=== PATIENT | female | born 1985 | race Hispanic/Latino ===

== ENCOUNTER 2017-01-01 14:52 | Inpatient (IN) | payer OTHER ==
--- NOTE | 2017-01-01 15:56 | ED PDOC ---
HPI: General Adult Time Seen by Provider: 01/01/17 14:55 Chief Complaint (Nursing): Weakness/Neurological Deficit Chief Complaint (Provider): Weakness, abnormal labs History Per: Patient History/Exam Limitations: no limitations Onset/Duration Of Symptoms: Persistent, Other Have you had recent travel within the past 21 days to any of the following countries: [place], [place], [place] or [place]?: No Current Symptoms Are (Timing): Still Present Severity: Moderate Additional History Per: Patient Additional Complaint(s): The pt is a 31yo female, PMHx of IDDM, stage 4 kidney failure, presents to the ED for evaluation of weakness and nausea present for the past couple weeks. Pt also reports she recently had bloodwork done and her results indicated her kidney function went fro 15 to 6, causing her concern and prompting her visit to the ED. Pt currently requesting a repeat of her bloodwork to compare against her [facility] results. She denies any fever, vomiting or diarrhea and offers no additional medical complaints. PCP: [place] Help Desk Engineer: Dr. Mora Past Medical History Reviewed: Historical Data, Nursing Documentation, Vital Signs Vital Signs: Last Vital Signs Temp 98.4 F 01/01/17 15:09 Pulse 82 01/01/17 15:09 Resp 16 01/01/17 15:09 BP 148/96 H 01/01/17 15:09 Pulse Ox 100 01/01/17 19:11 - Medical History PMH: Anemia, Anxiety, Diabetes, HTN, Kidney Stones (first incident), Chronic Kidney Disease Denies: HIV - Surgical History Surgical History: Appendectomy - Family History Family History: States: Diabetes - Living Arrangements Living Arrangements: With Family - Social History Current smoker - smoking cessation education provided: No Alcohol: None Drugs: Denies - Home Medications Home Medications: Ambulatory Orders Medication Instructions Recorded Insulin Lispro [Humalog] 0.575 unit SC ASDIR 02/25/16 Atorvastatin [Lipitor] 20 mg PO HS #0 tab 04/02/16 Norethindrone [Ortho Micronor] 1 tab PO DAILY #0 tablet 04/02/16 Sodium Bicarbonate Tab 1,300 mg PO BID #0 tab 04/02/16 - Allergies Allergies/Adverse Reactions: Allergies Allergy/AdvReac Type Severity Reaction Status Date / Time Sulfa (Sulfonamide Allergy RASH Verified 06/04/17 15:08 Antibiotics) Review of Systems ROS Statement: Except As Marked, All Systems Reviewed And Found Negative Constitutional: Positive for: Weakness. Negative for: Fever Gastrointestinal: Positive for: Nausea. Negative for: Vomiting, Diarrhea Physical Exam - Reviewed Nursing Documentation Reviewed: Yes Vital Signs Reviewed: Yes - Physical Exam Appears: Positive for: Well, Non-toxic, No Acute Distress Head Exam: Positive for: ATRAUMATIC, NORMAL INSPECTION, NORMOCEPHALIC Skin: Positive for: Normal Color Eye Exam: Positive for: EOMI Cardiovascular/Chest: Positive for: Regular Rate, Rhythm Respiratory: Positive for: Normal Breath Sounds. Negative for: Respiratory Distress Gastrointestinal/Abdominal: Positive for: Soft. Negative for: Tenderness Extremity: Positive for: Normal ROM Neurologic/Psych: Positive for: Alert, Oriented - Laboratory Results Result Diagrams: 01/01/17 15:57 01/01/17 15:57 - ECG O2 Sat by Pulse Oximetry: 100 Medical Decision Making Medical Decision Making: Time: 152 Impression: Chronic end stage kidney failure Plan: -- CBC -- Magneisum -- Phosphorous -- BMP -- Urinalysis --Reassess Time: 171 Labs indicate: BUN: 114 Creatinine: 10.0 Time: [address] Tierney, covering for Dr. Mora; informed about pt's lab results and Dr. Tierney advises admission for further evaluation and possible dialysis in the future. Recommends Renal US. Time: 184 US Renal IMPRESSION: Bilateral small, echogenic kidneys, suggestive of chronic renal parenchymal disease. Recommend clinical correlation. Probable left renal cyst. No evidence of hydronephrosis or other acute sonographic abnormality of the kidneys. Scribe Attestation: Documented by Jess Martinez acting as a scribe for Charmaine Stiles MD. Provider Attestation: All medical record entries made by the Scribe were at my direction and personally dictated by me. I have reviewed the chart and agree that the record accurately reflects my personal performance of the history, physical exam, medical decision making, and the department course for this patient. I have also personally directed, reviewed, and agree with the discharge instructions and disposition. Disposition - Clinical Impression Clinical Impression: Acute renal failure superimposed on stage 4 chronic kidney disease - Patient ED Disposition Is Patient to be Admitted: Yes Discussed With DrSmith: Nba Pappas Doctor Will See Patient In The: Hospital Counseled Patient/Family Regarding: Studies Performed, Diagnosis - Disposition Disposition Time: 17:30 Condition: FAIR - Pt Status Changed To: Hospital Disposition Of: Observation - POA Present On Arrival: None, Poor Glycemic Control
[2017-01-01 16:23] LABS: BASO # 0.1 K/uL (0.0-0.2); EOS # 0.1 K/uL (0.0-0.7); EOS % 1.3 % (0.0-4.0); HEMATOCRIT 28.1 % (34.0-47.0); LYMPH # 1.5 K/uL (1.0-4.3); LYMPH % 20.2 % (20.0-40.0); MEAN CELL VOLUME 81.8 fl (81.0-99.0); MEAN CORPUSCULAR HEMOGLOBIN 28.2 pg (27.0-31.0); MEAN CORPUSCULAR HGB CONC 34.5 g/dL (33.0-37.0); MEAN PLATELET VOLUME 7.9 fl (7.2-11.7); MONO # 0.5 K/uL (0.0-0.8); MONO % 6.3 % (0.0-10.0); NEUT # 5.2 K/uL (1.8-7.0); NEUT % 71.2 % (50.0-75.0); NRBC % 0.1 % (0.0-0.0); WHITE BLOOD COUNT 7.3 K/uL (4.8-10.8)
[2017-01-01 16:25] LABS: RBC URINE 2 /hpf (0-3); URINE BACTERIA RARE (<OCC); URINE BILIRUBIN NEGATIVE (NEGATIVE); URINE BLOOD NEGATIVE (NEGATIVE); URINE COLOR STRAW (YELLOW); URINE GLUCOSE (UA) >=500 mg/dL (Normal); URINE KETONE NEGATIVE (NEGATIVE); URINE LEUKOCYTE ESTERASE NEG Leu/uL (Negative); URINE PROTEIN >=500 mg/dL (NEGATIVE); URINE UROBILINOGEN 0.2-1.0 mg/dL (0.2-1.0); WBC URINE 1 /hpf (0-5)
[2017-01-01 16:36] LABS: ALB/GLOB RATIO 1.4 (1.0-2.1); BILIRUBIN,TOTAL 0.7 mg/dl (0.2-1.3); MAGNESIUM 1.9 MG/DL (1.6-2.3); PHOSPHOROUS 8.7 mg/dl (2.5-4.5); POTASSIUM 4.3 MMOL/L (3.6-5.0); TOTAL PROTEIN 6.4 G/DL (6.3-8.2)
--- NOTE | 2017-01-01 18:32 | CP.PCM.CON ---
History of Present Illness - History of Present Illness History of Present Illness: Initial Nephrology Consultation: Assessment: LYNN ? etiology on Chronic Kidney Disease Stage 4/5 with 8 gm proteinuria likely due to diabetic nephropathy: likely ESRD now HAGMS with superimposed metabolic alkalosis Anemia, Hyperphosphatemia, Secondary hyperparathyroidism, Hypertension, DM Plan initiation of renal replacement therapy will be indicated in next 1-2 days if no renal improvement with IVF. consent for dialysis obtained. start NS at 100 ml/hr straight cath to r/o obstruction and also to check renal sonogram: done: echogenic kidneys Pt can get kidnet transplant at [facility] in 2 weeks, has living donor. work up has been all complete as per pt Hypertension control with meds as ordered. Patient not on ACEI/ARB advanced CKD Monitor Input/Output, daily weights and renal function with basic metabolic panel, phos, CBC start renvela 1600 mg TID with meals. Nephrovit 1 tab/day. ferrous sulphate 352 mg TID and calcitriol 0.5 mcg daily Dose meds/antibiotics for reduced GFR <10. Avoid fleets enema/magnesium based laxatives. Avoid nephrotoxins/NSAIDs/ iodinated contrast (unless needed emergently) Glycemic control Further work up for as per primary team Thanks for allowing me to participate in care of your patient. Will follow patient with you. Please call if any Qs Dr Héctor Tierney Office: [phone] Chief Complaint; kidney problem HPI: Pt is a 31 y/o F with hx of Type I diabetes Mellitus and CKD stage 4/5 (cr 3-4 in 2016) presented with complaints of abormal labs and elevated creatinine. BUN 114 and cr 10 now hence renal consulted Denies chest pain, palpitation, shortness of breath, leg swelling Denies blood or bubbles in urine Denies OTC/herbal meds or NSAIDs No recent iodinated contrast exposure. No obvious episodes of low BP. feels fatigue and tired ROS: Constitutional Symptoms: Denies fever. No chills. No Recent Weight Changes Eyes: denies change in vision, denies watery eyes, denies double vision Ears/Nose/Mouth/Throat: Denies Abnormal Taste. No Bad breath or Bad Taste. Cardiovascular: No chest pain. There is no shortness of breath. No palpitations. Pulmonary: No shortness of breath or cough. Gastrointestinal: denies abdominal pain No nausea. No vomiting. Denies change in bowel habits. Denies Bleeding Genitourinary: No Change in force of strain when urinating. No increase in urinary frequency. No pain while urinating. Denies blood in urine. Neurological: Denies headaches. No dizziness. Denies loss of balance. Denies weakness, denies tingling/numbness Dermatological: No Rash or Bruising or ulcers. Psychiatric: Denies Anxiety. No depression. Denies hallucinations. Rheumatological: No joint pain. Denies Joint swelling Endocrine: c/o tiredness. c/o Fatigue and Heat/Cold Intolerance. Physical Examination: General Appearance: Comfortable, in no acute respiratory distress, co-operative . Vitals reviewed and noted as below Head; Atraumatic, normocephalic ENT: no ulcers no thrush. Tongue is midline. Oropharynx: no rash or ulcers. EYES: Pupils are equal, round and reactive to light accommodation. Eye muscles and extraocular movement intact. Sclera is anicteric. Neck; supple no lymphadenopathy, no thyromegaly or bruit Lungs: Normal respiratory rate/effort. Breath sounds bilateral equal and clear Heart: Normal rate. s1s2 normal. No rub or gallop. Extremities: no edema. No varicose veins Neurological: Patient is alert, awake and oriented to person, place and time. No focal deficit. Strength bilateral appropriate and equal Skin: Warm and dry. Normal turgor. No rash. Palpitation: Normal elasticity for age Abdomen: Abdomen is soft. Bowel sounds +. There is no abdominal tenderness, no guarding/rigidity or organomegaly Psych: normal insight and normal affect/mood MSK: no joint tenderness or swelling. Digits and nails normal, no deformity : kidney or bladder not palpable Labs/imaging reviewed. Past medical history, past surgical history, family history, social history, allergy reviewed and noted as below UA: 500 pr and [address] 2016 with Rt hydronephrosis outpt PTH 1003 TSAT 30% ferriitn 118 urine pr/cr 8 gram/day Past Patient History - Past Medical History & Family History Past Medical History?: Yes - Past Social History Alcohol: None Drugs: Denies - CARDIAC Hx Hypertension: Yes - PULMONARY Hx Respiratory Disorders: No - NEUROLOGICAL Hx Neurological Disorder: No - HEENT Hx HEENT Problems: Yes (DM1) - RENAL Hx Chronic Kidney Disease: Yes Hx Kidney Stones: Yes (first incident) - ENDOCRINE/METABOLIC Hx Diabetes Mellitus Type 1: Yes - HEMATOLOGICAL/ONCOLOGICAL Hx Anemia: Yes Hx Human Immunodeficiency Virus (HIV): No - INTEGUMENTARY Hx Dermatological Problems: No - MUSCULOSKELETAL/RHEUMATOLOGICAL Hx Musculoskeletal Disorders: No - GASTROINTESTINAL Hx Gastrointestinal Disorders: No - GENITOURINARY/GYNECOLOGICAL Hx Genitourinary Disorders: No - PSYCHIATRIC Hx Anxiety: Yes - SURGICAL HISTORY Hx Appendectomy: Yes - ANESTHESIA Hx Anesthesia: Yes Hx Anesthesia Reactions: No Meds Allergies/Adverse Reactions: Allergies Allergy/AdvReac Type Severity Reaction Status Date / Time Sulfa (Sulfonamide Allergy RASH Verified 01/01/17 15:08 Antibiotics) Results - Vital Signs Recent Vital Signs: Last Vital Signs Temp 98.4 F 01/01/17 15:09 Pulse 82 01/01/17 15:09 Resp 16 01/01/17 15:09 BP 148/96 H 01/01/17 15:09 Pulse Ox 100 01/01/17 17:45 - Labs Result Diagrams: 01/01/17 15:57 01/01/17 15:57 Labs: Laboratory Results - last 24 hr 01/01/17 01/01/17 01/01/17 15:57 15:57 15:57 WBC 7.3 RBC 3.43 L Hgb 9.7 L Hct 28.1 L MCV 81.8 D MCH 28.2 MCHC 34.5 RDW 13.0 Plt Count 222 MPV 7.9 Neut % (Auto) 71.2 Lymph % (Auto) 20.2 [place] % (Auto) 6.3 Eos % (Auto) 1.3 Baso % (Auto) 1.0 Neut # 5.2 Lymph # 1.5 [place] # 0.5 Eos # 0.1 Baso # 0.1 Sodium 131 L Potassium 4.3 Chloride 95 L Carbon Dioxide 21 L Anion Gap 19 BUN 114 H* D Creatinine 10.0 H* D Est GFR ( Amer) 5 Est GFR (Non-Af Amer) 5 Random Glucose 195 H Calcium 7.0 L Phosphorus 8.7 H Magnesium 1.9 Total Bilirubin 0.7 AST 34 ALT 35 Alkaline Phosphatase 65 Total Protein 6.4 Albumin 3.7 Globulin 2.7 Albumin/Globulin Ratio 1.4 Urine Color Straw Urine Clarity Clear Urine pH 7.0 Ur Specific Wendel 1.011 Urine Protein >=500 Urine Glucose (UA) >=500 Urine Ketones Negative Urine Blood Negative Urine Nitrate Negative Urine Bilirubin Negative Urine Urobilinogen 0.2-1.0 Ur Leukocyte Esterase Neg Urine RBC (Auto) 2 Urine Microscopic WBC 1 Ur Squamous Epith Cells 1 Urine Bacteria Rare
--- NOTE | 2017-01-01 18:47 | US ---
EXAM: US Retroperitoneal Complete, Renal CLINICAL HISTORY: 31 years old, female; Signs and symptoms and condition or disease; Kidney or ureter condition; Chronic kidney disease or failure; Not specified; Other: Medical eval; Additional info: Renal failure TECHNIQUE: Real-time ultrasound of the retroperitoneum (complete) with image documentation. EXAM DATE/TIME: 01/01/2017 5:23 PM COMPARISON: No relevant prior studies available. FINDINGS: Right kidney: Demonstrates increased cortical echogenicity, most likely due to renal parenchymal disease. Small in size, measuring 8.3 cm in length. Otherwise within normal limits in appearance. No evidence of hydronephrosis. No renal calculi are visible sonographically. Left kidney: Demonstrates increased cortical echogenicity, most likely due to renal parenchymal disease. Small in size, measuring 7.9 cm in length. Contains a 2.0 x 1.3 cm anechoic lesion, located in the upper pole, incompletely visualized due to bowel gas, but most likely a cyst. Otherwise within normal limits in appearance. No evidence of hydronephrosis. No renal calculi are visible sonographically. Bladder: Incompletely distended. Bilateral ureteral jets were not visualized. Otherwise within normal limits in appearance. Aorta: Imaged portions appear unremarkable. IVC: Imaged portions appear unremarkable. IMPRESSION: Bilateral small, echogenic kidneys, suggestive of chronic renal parenchymal disease. Recommend clinical correlation. Probable left renal cyst. No evidence of hydronephrosis or other acute sonographic abnormality of the kidneys. See above for remaining findings.
[2017-01-01] MEDS: Sodium Chloride 0.9% 1,000 ML IV SCH (19:35)
[2017-01-01] MEDS ORDERED: Dextrose 50% SYRINGE Inj (50 ml) ONE (20:06)
[2017-01-01] MEDS ORDERED: Dextrose 50% SYRINGE Inj (50 ml) IVP ONE (20:30)
[2017-01-02] MEDS: Sodium Chloride 0.9% 1,000 ML IV SCH ×2 (04:35→12:30)
[2017-01-02] MEDS: Insulin Regular 100 units/ml SC SCH ×5 (06:57→22:38)
[2017-01-02] MEDS ORDERED: NORETHINDRONE E ESTRADIOL IRON PO SCH (09:00)
[2017-01-02 10:19] LABS: HEMATOCRIT 24.2 % (34.0-47.0); MEAN CELL VOLUME 82.5 fl (81.0-99.0); MEAN CORPUSCULAR HEMOGLOBIN 27.7 pg (27.0-31.0); MEAN CORPUSCULAR HGB CONC 33.6 g/dL (33.0-37.0)
[2017-01-02 10:28] LABS: CALCIUM 6.7 mg/dL (8.4-10.2); PHOSPHOROUS 7.8 mg/dl (2.5-4.5); POTASSIUM 4.4 MMOL/L (3.6-5.0)
[2017-01-02 10:31] LABS: IRON 119 ug/dL (37-170)
[2017-01-02] MEDS ORDERED: EPOETIN ALFA 10,000 UNIT/ML ML SC SCH (11:04)
--- NOTE | 2017-01-02 11:08 | CP.PCM.PN ---
Subjective - Date & Time of Evaluation Date of Evaluation: 01/02/17 Time of Evaluation: 11:06 - Subjective Subjective: Patient and bed appears to be improving She feels much better No nausea or vomiting at the present Physical exam Chest clear Heart no rubs Abdomen soft Extremity no edema Impression and plan Patient has a stage V CK D she is about to need dialysis waiting for repeating basic metabolic profile. Also patient has anemia we will start EPO starting now. get specimen for protein in the urine and creatinine, serum phosphorus and PTH Continue gentle hydration cut down IV fluid if not improving we will proceed with the dialysis perhaps tomorrow. Objective - Vital Signs/Intake and Output Vital Signs (last 24 hours): Temp Pulse Resp BP Pulse Ox 98.7 F 75 20 182/96 H 99 01/02/17 07:57 01/02/17 07:57 01/02/17 07:57 01/02/17 07:57 01/02/17 07:57 - Medications Medications: Current Medications Atorvastatin Calcium (Lipitor) 20 mg PO HS [facility] Calcitriol (Rocaltrol) 0.25 mcg PO QOTHERDAY [facility] Home Med (Norethindrone-E.Estradiol-Iron [Loestrin Fe 1-20 Tablet]) 1 tab PO DAILY [facility] Sodium Chloride (Sodium Chloride 0.9%) 1,000 mls @ 125 mls/hr IV .Q8H [facility] Stop: 01/02/17 19:22 Last Admin: 01/02/17 04:35 Dose: 125 mls/hr Insulin Human Regular (Humulin R) 0 units SC ACHS [facility] PRN Reason: Protocol Last Admin: 01/02/17 06:58 Dose: Not Given Ondansetron HCl (Zofran Inj) 4 mg IVP Q6 PRN PRN Reason: Nausea/Vomiting Sodium Bicarbonate (Sodium Bicarbonate Tab) 1,300 mg PO BID [facility] Last Admin: 01/02/17 09:17 Dose: 1,300 mg - Labs Labs: 01/02/17 10:05 - Constitutional Appears: No Acute Distress - ENT Exam ENT Exam: Mucous Membranes Moist - Respiratory Exam Respiratory Exam: NORMAL BREATHING PATTERN - Cardiovascular Exam Cardiovascular Exam: REGULAR RHYTHM. absent: JVD, Rubs - GI/Abdominal Exam GI & Abdominal Exam: Normal Bowel Sounds - Extremities Exam Extremities Exam: absent: Calf Tenderness - Back Exam Back Exam: absent: CVA tenderness (L), CVA tenderness (R) - Neurological Exam Neurological Exam: Alert
--- NOTE | 2017-01-02 15:55 | CP.PCM.HP ---
History of Present Illness - History of Present Illness History of Present Illness: The pt is a 31yo female, PMHx of IDDM, stage 4 kidney failure, presents to the ED for evaluation of weakness and nausea present for the past couple weeks. Pt also reports she recently had bloodwork done and her results indicated her kidney function went fro 15 to 6, causing her concern and prompting her visit to the ED. no n/v/d/f at this time. Present on Admission - Present on Admission Any Indicators Present on Admission: Yes Past Patient History - Past Medical History & Family History Past Medical History?: Yes - Past Social History Smoking Status: Never Smoked - CARDIAC Hx Cardiac Disorders: Yes Hx Hypercholesterolemia: Yes Hx Hypertension: Yes - PULMONARY Hx Respiratory Disorders: No - NEUROLOGICAL Hx Neurological Disorder: No - HEENT Hx HEENT Problems: Yes - RENAL Hx Chronic Kidney Disease: Yes Hx Dialysis: No Hx Renal Failure: Yes Other/Comment: Never started dialysis - ENDOCRINE/METABOLIC Hx Endocrine Disorders: Yes Hx Diabetes Mellitus Type 1: Yes - HEMATOLOGICAL/ONCOLOGICAL Hx Blood Disorders: Yes Hx AIDS: No Hx Anemia: Yes Hx Human Immunodeficiency Virus (HIV): No - INTEGUMENTARY Hx Dermatological Problems: No - MUSCULOSKELETAL/RHEUMATOLOGICAL Hx Musculoskeletal Disorders: No Hx Falls: No - GASTROINTESTINAL Hx Gastrointestinal Disorders: No - GENITOURINARY/GYNECOLOGICAL Hx Genitourinary Disorders: No - PSYCHIATRIC Hx Psychophysiologic Disorder: No Hx Substance Use: No - SURGICAL HISTORY Hx Surgeries: Yes Hx Appendectomy: Yes (2000) - ANESTHESIA Hx Anesthesia: Yes Hx Anesthesia Reactions: No Meds Allergies/Adverse Reactions: Allergies Allergy/AdvReac Type Severity Reaction Status Date / Time Sulfa (Sulfonamide Allergy RASH Verified 01/01/17 15:08 Antibiotics) Physical Exam - Head Exam Head Exam: ATRAUMATIC, NORMAL INSPECTION - Eye Exam Eye Exam: EOMI, Normal appearance Pupil Exam: NORMAL ACCOMODATION, PERRL - ENT Exam ENT Exam: Mucous Membranes Moist - Neck Exam Neck exam: Positive for: Normal Inspection - Respiratory Exam Respiratory Exam: Clear to Auscultation Bilateral, NORMAL BREATHING PATTERN - Cardiovascular Exam Cardiovascular Exam: REGULAR RHYTHM, +S1, +S2 - GI/Abdominal Exam GI & Abdominal Exam: Normal Bowel Sounds, Soft - Extremities Exam Extremities exam: Positive for: normal inspection Results - Vital Signs Recent Vital Signs: Last Vital Signs Temp 98.7 F 01/02/17 07:57 Pulse 75 01/02/17 07:57 Resp 20 01/02/17 07:57 BP 182/96 H 01/02/17 07:57 Pulse Ox 99 01/02/17 07:57 - Labs Result Diagrams: 01/02/17 10:05 01/02/17 10:05 Labs: Laboratory Results - last 24 hr 01/01/17 01/02/17 01/02/17 22:36 06:06 06:53 WBC RBC Hgb Hct MCV MCH MCHC RDW Plt Count Sodium Potassium Chloride Carbon Dioxide Anion Gap BUN Creatinine Est GFR ( Amer) Est GFR (Non-Af Amer) POC Glucose (mg/dL) 93 55 L 101 Random Glucose Calcium Phosphorus Iron TIBC % Saturation Ferritin 01/02/17 01/02/17 01/02/17 10:05 10:05 10:05 WBC 6.0 RBC 2.94 L Hgb 8.1 L Hct 24.2 L MCV 82.5 MCH 27.7 MCHC 33.6 RDW 13.0 Plt Count 161 Sodium 132 Potassium 4.4 Chloride 100 Carbon Dioxide 23 Anion Gap 14 BUN 111 H* Creatinine 9.9 H* Est GFR ( Amer) 6 Est GFR (Non-Af Amer) 5 POC Glucose (mg/dL) Random Glucose 195 H Calcium 6.7 L Phosphorus 7.8 H Iron 119 TIBC 252 % Saturation 47 Ferritin 98.2 01/02/17 10:59 WBC RBC Hgb Hct MCV MCH MCHC RDW Plt Count Sodium Potassium Chloride Carbon Dioxide Anion Gap BUN Creatinine Est GFR ( Amer) Est GFR (Non-Af Amer) POC Glucose (mg/dL) 186 H Random Glucose Calcium Phosphorus Iron TIBC % Saturation Ferritin Assessment & Plan - Assessment and Plan (Free Text) Assessment: 31 y/o female with h/o IDDM, stage 4/5 kidney disease, anemia presents to ER. Plan: 1. CKD, prob ESRD Cr. 9.9 nephro on consult considering HD pt has her own nephro in [facility] scheduled for transplant in the next couple of weeks. nephro will follow up. 2. IDDM cont same meds 3. Anemia EPO 4. hypophosphatemia will supp
[2017-01-02] MEDS: Calcium Acetate 667 MG Capsule PO SCH (16:47)
[2017-01-02 17:59] LABS: CREATININE, RANDOM URINE 24.4 mg/dL
[2017-01-03] MEDS: Sodium Chloride 0.9% 1,000 ML IV SCH (03:11)
[2017-01-03] MEDS ORDERED: Dextrose 50% SYRINGE Inj (50 ml) ONE (07:18)
[2017-01-03] MEDS ORDERED: Dextrose 50% SYRINGE Inj (50 ml) IVP ONE (07:28)
[2017-01-03] MEDS: Insulin Regular 100 units/ml SC SCH ×4 (08:15→23:19)
[2017-01-03 08:19] LABS: BASO % 0.8 % (0.0-2.0); EOS # 0.2 K/uL (0.0-0.7); HEMATOCRIT 26.5 % (34.0-47.0); LYMPH # 1.8 K/uL (1.0-4.3); LYMPH % 31.3 % (20.0-40.0); MEAN CELL VOLUME 81.9 fl (81.0-99.0); MEAN CORPUSCULAR HEMOGLOBIN 27.9 pg (27.0-31.0); MEAN PLATELET VOLUME 7.4 fl (7.2-11.7); MONO # 0.4 K/uL (0.0-0.8); MONO % 7.2 % (0.0-10.0); NEUT # 3.3 K/uL (1.8-7.0); NEUT % 57.7 % (50.0-75.0); RED CELL DISTRIBUTION WIDTH 13.3 % (11.5-14.5); WHITE BLOOD COUNT 5.8 K/uL (4.8-10.8)
[2017-01-03 08:38] LABS: ALB/GLOB RATIO 1.2 (1.0-2.1); BILIRUBIN,TOTAL 0.5 mg/dl (0.2-1.3); CALCIUM 7.2 mg/dL (8.4-10.2); POTASSIUM 3.7 MMOL/L (3.6-5.0); TOTAL PROTEIN 5.8 G/DL (6.3-8.2)
[2017-01-03] MEDS: Calcium Acetate 667 MG Capsule PO SCH ×2 (08:53→14:15)
[2017-01-03] MEDS ORDERED: Lidocaine 2% GEL TOP SCH ×3 (09:45→12:45)
--- NOTE | 2017-01-03 10:24 | CP.PCM.PN ---
Subjective - Date & Time of Evaluation Date of Evaluation: 01/03/17 Time of Evaluation: 09:00 - Subjective Subjective: The pt is a 31yo female, PMHx of IDDM, stage 4 kidney failure, presents to the ED for evaluation of weakness and nausea present for the past couple weeks. Pt also reports she recently had bloodwork done and her results indicated her kidney function went fro 15 to 6, causing her concern and prompting her visit to the ED. no n/v/d/f at this time. Objective - Vital Signs/Intake and Output Vital Signs (last 24 hours): Temp Pulse Resp BP Pulse Ox 97.9 F 88 20 170/104 H 98 01/03/17 08:25 01/03/17 10:04 01/03/17 08:25 01/03/17 10:04 01/03/17 08:25 - Medications Medications: Current Medications Alprazolam (Xanax) 0.25 mg PO ONCE ONE Stop: 01/03/17 12:01 Atorvastatin Calcium (Lipitor) 20 mg PO HS [facility] Last Admin: 01/02/17 21:50 Dose: 20 mg Calcitriol (Rocaltrol) 0.75 mcg PO DAILY [facility] Last Admin: 01/02/17 16:57 Dose: 0.75 mcg Calcium Acetate (Phoslo) 2,001 mg PO TID [facility] Last Admin: 01/03/17 08:53 Dose: 2,001 mg Clonidine HCl (Catapres) 0.1 mg PO BID [facility] Last Admin: 01/03/17 10:04 Dose: 0.1 mg Epoetin Dash (Procrit) 10,000 unit SC MWF [facility] Last Admin: 01/02/17 12:18 Dose: 10,000 unit Home Med (Norethindrone-E.Estradiol-Iron [Loestrin Fe 1-20 Tablet]) 1 tab PO DAILY [facility] Sodium Chloride (Sodium Chloride 0.9%) 1,000 mls @ 75 mls/hr IV .[id number] [facility] Stop: 01/03/17 12:27 Last Admin: 01/03/17 03:11 Dose: Not Given Dextrose/Sodium Chloride (Dextrose 5%-0.9% Ns 500 Ml) 1,000 mls @ 40 mls/hr IV .Q24H [facility] Stop: 01/04/17 09:44 Insulin Human Regular (Humulin R) 0 units SC ACHS [facility] PRN Reason: Protocol Last Admin: 01/03/17 08:15 Dose: Not Given Lidocaine HCl (Xylocaine 2%) 1 applic TOP DAILY [facility] Ondansetron HCl (Zofran Inj) 4 mg IVP Q6 PRN PRN Reason: Nausea/Vomiting Sodium Bicarbonate (Sodium Bicarbonate Tab) 1,300 mg PO BID [facility] Last Admin: 01/03/17 08:47 Dose: 1,300 mg - Labs Labs: 01/03/17 07:30 01/03/17 07:30 Assessment and Plan - Assessment and Plan (Free Text) Assessment: 1. ESRD HD today Nephro will speak to her transplant doc [place] before procedure 2. IDDM cont same treatment will monitor.
--- NOTE | 2017-01-03 10:47 | CP.PCM.PN ---
Subjective - Date & Time of Evaluation Date of Evaluation: 01/03/17 Time of Evaluation: 10:45 - Subjective Subjective: Patient sitting up in bed No significant nausea no vomiting Patient complaining of some weakness And some low back pain for which she is requesting patches for the pain blood pressure elevated She developed episode of hypoglycemia this morning Objective - Vital Signs/Intake and Output Vital Signs (last 24 hours): Temp Pulse Resp BP Pulse Ox 97.9 F 88 20 170/104 H 98 01/03/17 08:25 01/03/17 10:04 01/03/17 08:25 01/03/17 10:04 01/03/17 08:25 - Medications Medications: Current Medications Alprazolam (Xanax) 0.25 mg PO ONCE ONE Stop: 01/03/17 12:01 Atorvastatin Calcium (Lipitor) 20 mg PO HS [facility] Last Admin: 01/02/17 21:50 Dose: 20 mg Calcitriol (Rocaltrol) 0.75 mcg PO DAILY [facility] Last Admin: 01/02/17 16:57 Dose: 0.75 mcg Calcium Acetate (Phoslo) 2,001 mg PO TID [facility] Last Admin: 01/03/17 08:53 Dose: 2,001 mg Clonidine HCl (Catapres) 0.1 mg PO BID [facility] Last Admin: 01/03/17 10:04 Dose: 0.1 mg Epoetin Dash (Procrit) 10,000 unit SC MWF [facility] Last Admin: 01/02/17 12:18 Dose: 10,000 unit Home Med (Norethindrone-E.Estradiol-Iron [Loestrin Fe 1-20 Tablet]) 1 tab PO DAILY [facility] Sodium Chloride (Sodium Chloride 0.9%) 1,000 mls @ 75 mls/hr IV .[id number] [facility] Stop: 01/03/17 12:27 Last Admin: 01/03/17 03:11 Dose: Not Given Dextrose/Sodium Chloride (Dextrose 5%-0.9% Ns 500 Ml) 1,000 mls @ 40 mls/hr IV .Q24H [facility] Stop: 01/04/17 09:44 Insulin Human Regular (Humulin R) 0 units SC ACHS [facility] PRN Reason: Protocol Last Admin: 01/03/17 08:15 Dose: Not Given Lidocaine HCl (Xylocaine 2%) 1 applic TOP DAILY [facility] Ondansetron HCl (Zofran Inj) 4 mg IVP Q6 PRN PRN Reason: Nausea/Vomiting Sodium Bicarbonate (Sodium Bicarbonate Tab) 1,300 mg PO BID [facility] Last Admin: 01/03/17 08:47 Dose: 1,300 mg - Labs Labs: 01/03/17 07:30 01/03/17 07:30 - Constitutional Appears: No Acute Distress - ENT Exam ENT Exam: Mucous Membranes Moist - Respiratory Exam Respiratory Exam: Clear to Ausculation Bilateral, NORMAL BREATHING PATTERN - Cardiovascular Exam Cardiovascular Exam: REGULAR RHYTHM. absent: JVD, Rubs - GI/Abdominal Exam GI & Abdominal Exam: Normal Bowel Sounds. absent: Guarding - Extremities Exam Extremities Exam: absent: Calf Tenderness - Back Exam Back Exam: absent: CVA tenderness (L), CVA tenderness (R) - Neurological Exam Neurological Exam: Alert - Psychiatric Exam Psychiatric exam: Anxious Assessment and Plan (1) Chronic kidney disease, stage 5 Assessment & Plan: Kidney function and improving after 2 days of intravenous gentle hydration with serum creatinine still 10.5 With B UN about 100 Patient is mild to moderate symptomatic uremia therefore we will start hemodialysis today I explained to the patient in detail what's involved in dialysis all the pros and cons Patient will need dialysis catheter to proceed with dialysis I also explained all the pros and con Patient apparently scheduled to have kidney transplant the within couple of weeks what uncontrolled on or around January 12 also in [facility] in [place] as I received phone call from the garden equipment mechanic from [place] I also called this morning the [facility] left the [facility] that she is starting on dialysis Blood pressure elevated patient does not want to have diltiazem I give her clonidine. We'll arrange for dialysis as soon as possible also I arrange for temporary dialysis catheter for today because she ate a breakfast. I spent approximately hour and a half between calling [facility] and dialysis explanation everything to the patient from a to Z Consent was taken past Monday And she will need dialysis today and tomorrow. Serum calcium improving patient has severe hyperphosphatemia I added PhosLo yesterday. Also she is anemic I started her on EPO yesterday Status: Acute
[2017-01-03 13:22] LABS: PARTIAL THROMBOPLASTIN TIME 28.8 Seconds (25.6-37.1)
[2017-01-03] MEDS ORDERED: Lidocaine 1% Inj (20ml) ONE (14:32)
--- NOTE | 2017-01-03 14:59 | PCM.SURG1 ---
Surgeon's Initial Post Op Note - Surgeon's Notes Surgeon: Candy Nelson Personal Lines Insurance Agent: NONE Type of Anesthesia: Local Pre-Operative Diagnosis: Renal failure Operative Findings: Patent righ IJV. Post-Operative Diagnosis: Renal failure Operation Performed: Non-tunneled HD catheter placement right IJV. Specimen/Specimens Removed: None Estimated Blood Loss: EBL {In ML}: 2 Blood Products Given: N/A Drains Used: No Drains Post-Op Condition: Fair Date of Surgery/Procedure: 01/03/17 Time of Surgery/Procedure: 14:55
[2017-01-04 05:20] LABS: HEMATOCRIT 26.9 % (34.0-47.0); MEAN CELL VOLUME 82.8 fl (81.0-99.0); MEAN CORPUSCULAR HEMOGLOBIN 27.8 pg (27.0-31.0); MEAN CORPUSCULAR HGB CONC 33.5 g/dL (33.0-37.0); RED CELL DISTRIBUTION WIDTH 13.1 % (11.5-14.5)
[2017-01-04 05:33] LABS: CALCIUM 8.4 mg/dL (8.4-10.2); POTASSIUM 4.2 MMOL/L (3.6-5.0)
[2017-01-04] MEDS: Insulin Regular 100 units/ml SC SCH ×4 (07:01→22:05)
[2017-01-04] MEDS: Lidocaine 5% Patch TD SCH (08:44)
--- NOTE | 2017-01-04 09:38 | CP.PCM.PN ---
Subjective - Date & Time of Evaluation Date of Evaluation: 01/04/17 Time of Evaluation: 09:00 - Subjective Subjective: The pt is a 31yo female, PMHx of IDDM, stage 4 kidney failure, presents to the ED for evaluation of weakness and nausea present for the past couple weeks. Pt also reports she recently had bloodwork done and her results indicated her kidney function went fro 15 to 6, causing her concern and prompting her visit to the ED. no n/v/d/f at this time. Objective - Vital Signs/Intake and Output Vital Signs (last 24 hours): Temp Pulse Resp BP Pulse Ox 98.6 F 62 18 146/89 98 01/04/17 08:00 01/04/17 08:48 01/04/17 08:00 01/04/17 08:48 01/04/17 08:00 - Medications Medications: Current Medications Amlodipine Besylate (Norvasc) 5 mg PO DAILY [facility] Atorvastatin Calcium (Lipitor) 20 mg PO HS [facility] Last Admin: 01/03/17 23:00 Dose: 20 mg Calcitriol (Rocaltrol) 0.75 mcg PO DAILY [facility] Last Admin: 01/03/17 14:14 Dose: 0.75 mcg Calcium Acetate (Phoslo) 2,001 mg PO TID [facility] Last Admin: 01/04/17 08:47 Dose: 2,001 mg Clonidine HCl (Catapres) 0.1 mg PO BID [facility] Last Admin: 01/04/17 08:48 Dose: 0.1 mg Epoetin Dash (Procrit) 10,000 unit SC MWF [facility] Last Admin: 01/02/17 12:18 Dose: 10,000 unit Home Med (Norethindrone-E.Estradiol-Iron [Loestrin Fe 1-20 Tablet]) 1 tab PO DAILY [facility] Insulin Human Regular (Humulin R) 0 units SC ACHS [facility] PRN Reason: Protocol Last Admin: 01/04/17 07:01 Dose: Not Given Lidocaine (Lidoderm) 1 ea TD DAILY [facility] Last Admin: 01/04/17 08:44 Dose: 1 ea Ondansetron HCl (Zofran Inj) 4 mg IVP Q6 PRN PRN Reason: Nausea/Vomiting Sodium Bicarbonate (Sodium Bicarbonate Tab) 1,300 mg PO BID [facility] Last Admin: 01/04/17 08:46 Dose: 1,300 mg - Labs Labs: 01/04/17 04:10 01/04/17 04:10 PT 11.2 Seconds (9.8-13.1) 01/03/17 12:45 INR 1.0 (0.9-1.2) 01/03/17 12:45 APTT 28.8 Seconds (25.6-37.1) 01/03/17 12:45 Assessment and Plan - Assessment and Plan (Free Text) Assessment: 1. ESRD s/p HD yesterday tolerated well, cr 7.6 npo today for permacath placement. cont to monitor. f/u nephro
--- NOTE | 2017-01-04 10:53 | CP.PCM.PN ---
Subjective - Date & Time of Evaluation Date of Evaluation: 01/04/17 Time of Evaluation: 10:51 - Subjective Subjective: Patient and bed Complaining of pain in the right neck area where the catheter was inserted. No nausea or vomiting Objective - Vital Signs/Intake and Output Vital Signs (last 24 hours): Temp Pulse Resp BP Pulse Ox 98.6 F 64 20 146/89 98 01/04/17 09:00 01/04/17 09:00 01/04/17 09:00 01/04/17 09:00 01/04/17 09:00 - Medications Medications: Current Medications Amlodipine Besylate (Norvasc) 5 mg PO DAILY [facility] Atorvastatin Calcium (Lipitor) 20 mg PO HS [facility] Last Admin: 01/03/17 23:00 Dose: 20 mg Calcitriol (Rocaltrol) 0.75 mcg PO DAILY [facility] Last Admin: 01/03/17 14:14 Dose: 0.75 mcg Calcium Acetate (Phoslo) 2,001 mg PO TID [facility] Last Admin: 01/04/17 08:47 Dose: 2,001 mg Clonidine HCl (Catapres) 0.1 mg PO BID [facility] Last Admin: 01/04/17 08:48 Dose: 0.1 mg Epoetin Dash (Procrit) 10,000 unit IV MWF [facility] Home Med (Norethindrone-E.Estradiol-Iron [Loestrin Fe 1-20 Tablet]) 1 tab PO DAILY [facility] Insulin Human Regular (Humulin R) 0 units SC ACHS [facility] PRN Reason: Protocol Last Admin: 01/04/17 07:01 Dose: Not Given Lidocaine (Lidoderm) 1 ea TD DAILY [facility] Last Admin: 01/04/17 08:44 Dose: 1 ea Ondansetron HCl (Zofran Inj) 4 mg IVP Q6 PRN PRN Reason: Nausea/Vomiting Sodium Bicarbonate (Sodium Bicarbonate Tab) 1,300 mg PO BID [facility] Last Admin: 01/04/17 08:46 Dose: 1,300 mg - Labs Labs: 01/04/17 04:10 01/04/17 04:10 PT 11.2 Seconds (9.8-13.1) 01/03/17 12:45 INR 1.0 (0.9-1.2) 01/03/17 12:45 APTT 28.8 Seconds (25.6-37.1) 01/03/17 12:45 - Constitutional Appears: No Acute Distress - Eye Exam Eye Exam: Normal appearance - ENT Exam ENT Exam: Mucous Membranes Moist - Respiratory Exam Respiratory Exam: absent: Chest Wall Tenderness - Cardiovascular Exam Cardiovascular Exam: REGULAR RHYTHM. absent: Rubs - GI/Abdominal Exam GI & Abdominal Exam: Soft, Normal Bowel Sounds - Extremities Exam Extremities Exam: absent: Calf Tenderness - Back Exam Back Exam: absent: CVA tenderness (L), CVA tenderness (R) - Neurological Exam Neurological Exam: Alert - Psychiatric Exam Psychiatric exam: Anxious Assessment and Plan (1) Chronic kidney disease, stage 5 Assessment & Plan: Patient has by now end stage renal disease she was started on dialysis yesterday. Tolerated very well for the first time. Serum calcium improving, Hyperphosphatemia, patient receiving phosphorus binder hypocalcemia almost corrected Anemia patient receiving EPO 10,000 units intravenously order was given to be given during dialysis Patient supposed to go for anemia permacath today however has been canceled by the interventional radiologist postponed until tomorrow. Patient to have hemodialysis today as scheduled shortly Ultrafiltration up to 1500 mL Potassium about 3 mEq Sodium bath 138, serum sodium has been corrected and hyponatremia corrected. Patient to have permacath tomorrow and possibly discharged if she is being accepted in [place] in [facility] for outpatient dialysis until next Monday when she is going to have kidney transplant. Coordination of care has been discussed with the nurse practitioner social media sr strategy manager and nurse. Status: Acute
--- NOTE | 2017-01-04 14:40 | VASCULAR ---
PROCEDURE: Date of procedure: 01/03/2017 Procedure: Placement of a non tunneled hemodialysis catheter, CPT 88919 Medications: 6cc 1 percent lidocaine Radiation:0.77 MGy Fluoro time: 9.1 Seconds Images saved: 2 HISTORY: Renal failure TECHNIQUE: Following informed consent, the patient's right neck was prepped and draped in the usual sterile fashion. Ultrasound showed a patent and compressible right internal jugular vein. After the skin was anesthetized with 1% lidocaine, the internal jugular vein was accessed under direct ultrasound guidance with micropuncture technique and a guidewire was advanced under fluoroscopic guidance into the SVC. The venotomy was then dilated to accommodate a non tunneled 15 hemodialysis catheter. An image documenting ultrasound guidance for vascular access was permanently saved. The catheter was tested and has adequate blood return for hemodialysis. The catheter was flushed and loaded with heparin per specified amounts. The catheter was secured to patient's skin. A dressing was applied. Post procedure chest x-ray showed a hemodialysis catheter at the caval atrial junction. IMPRESSION: Placement of a non tunneled 15 centimeter hemodialysis catheter via the right internal jugular vein. The tip of the catheter was confirmed with a postoperative chest x-ray and is at the cavoatrial junction. The catheter is functional ready for use.
--- NOTE | 2017-01-04 14:47 | RAD ---
HISTORY: esrd COMPARISON: None available. TECHNIQUE: Chest PA and lateral FINDINGS: Right-sided central venous catheter extends to the cavoatrial junction. LUNGS: No focal consolidation. Please note that chest x-ray has limited sensitivity for the detection of pulmonary masses. PLEURA: No significant pleural effusion identified. No definite pneumothorax . CARDIOVASCULAR: The cardiomediastinal silhouette appears within normal limits of size. OSSEOUS STRUCTURES: Mild degenerative changes. VISUALIZED UPPER ABDOMEN: Unremarkable. OTHER FINDINGS: None. IMPRESSION: Right-sided central venous catheter terminates at the expected location of the cavoatrial junction.
[2017-01-04] MEDS: EPOETIN ALFA 10,000 UNIT/ML ML IV SCH (16:32)
[2017-01-05 06:59] LABS: CALCIUM 8.5 mg/dL (8.4-10.2); POTASSIUM 4.2 MMOL/L (3.6-5.0)
[2017-01-05] MEDS: Insulin Regular 100 units/ml SC SCH ×4 (08:27→21:36)
[2017-01-05] MEDS: Lidocaine 5% Patch TD SCH (08:29)
[2017-01-05] MEDS ORDERED: Lidocaine 1% Inj (20ml) ONE (09:14)
[2017-01-05] MEDS ORDERED: Midazolam 2 MG/2 ML VIAL ONE (09:32)
[2017-01-05] MEDS ORDERED: Propofol 10 mg/ml Inj (20 ML) ONE (09:35)
[2017-01-05] MEDS ORDERED: ceFAZolin 1 GM in Sodium Chloride 0.9% 100 ML IVPB ONE ×2 (10:00→10:06)
--- NOTE | 2017-01-05 10:08 | PCM.SURG1 ---
Surgeon's Initial Post Op Note - Surgeon's Notes Surgeon: Candy Nelson Plain Clothes Police Officer: None Type of Anesthesia: IV Sedation Pre-Operative Diagnosis: Renal failure Operative Findings: Non-tunneled right IJV HD catheter in place. Tunneled HD catheter placed and tip in the SVC. Post-Operative Diagnosis: Renal failure Operation Performed: 19 cm cuff-to-tip Tunneled HD catheter placed via right IJV and tip in the SVC. Specimen/Specimens Removed: NONE Estimated Blood Loss: EBL {In ML}: 3 Blood Products Given: N/A Drains Used: No Drains Post-Op Condition: Fair Date of Surgery/Procedure: 01/05/17 Time of Surgery/Procedure: 10:05
[2017-01-05] MEDS ORDERED: Sodium Chloride 0.9% 250 ML IV SCH (10:10)
--- NOTE | 2017-01-05 10:35 | CP.PCM.PN ---
Subjective - Date & Time of Evaluation Date of Evaluation: 01/05/17 Time of Evaluation: 10:33 - Subjective Subjective: Patient feeling much better She completed [facility] Objective - Vital Signs/Intake and Output Vital Signs (last 24 hours): Temp Pulse Resp BP Pulse Ox 98 F 63 18 134/87 99 01/05/17 08:00 01/05/17 08:33 01/05/17 08:00 01/05/17 08:33 01/05/17 08:00 - Medications Medications: Current Medications Amlodipine Besylate (Norvasc) 5 mg PO DAILY [facility] Last Admin: 01/05/17 08:33 Dose: 5 mg Atorvastatin Calcium (Lipitor) 20 mg PO HS [facility] Last Admin: 01/04/17 22:11 Dose: 20 mg Calcitriol (Rocaltrol) 0.75 mcg PO DAILY [facility] Last Admin: 01/05/17 08:33 Dose: 0.75 mcg Calcium Acetate (Phoslo) 2,001 mg PO TID [facility] Last Admin: 01/05/17 08:33 Dose: Not Given Clonidine HCl (Catapres) 0.1 mg PO BID [facility] Last Admin: 01/05/17 08:33 Dose: 0.1 mg Epoetin Dash (Procrit) 10,000 unit IV MWF [facility] Last Admin: 01/04/17 16:32 Dose: 10,000 unit Home Med (Norethindrone-E.Estradiol-Iron [Loestrin Fe 1-20 Tablet]) 1 tab PO DAILY [facility] Cefazolin Sodium 1 gm/ Sodium (Chloride) 100 mls @ 100 mls/hr IVPB ONCE ONE Stop: 01/05/17 11:05 Insulin Human Regular (Humulin R) 0 units SC ACHS [facility] PRN Reason: Protocol Last Admin: 01/05/17 08:27 Dose: Not Given Lidocaine (Lidoderm) 1 ea TD DAILY [facility] Last Admin: 01/05/17 08:29 Dose: 1 ea Ondansetron HCl (Zofran Inj) 4 mg IVP Q6 PRN PRN Reason: Nausea/Vomiting Sodium Bicarbonate (Sodium Bicarbonate Tab) 1,300 mg PO BID [facility] Last Admin: 01/05/17 08:32 Dose: 1,300 mg - Labs Labs: 01/04/17 04:10 01/05/17 05:00 PT 11.2 Seconds (9.8-13.1) 01/03/17 12:45 INR 1.0 (0.9-1.2) 01/03/17 12:45 APTT 28.8 Seconds (25.6-37.1) 01/03/17 12:45 - Constitutional Appears: No Acute Distress - ENT Exam ENT Exam: Mucous Membranes Moist - Respiratory Exam Respiratory Exam: NORMAL BREATHING PATTERN. absent: Chest Wall Tenderness, Rales - Cardiovascular Exam Cardiovascular Exam: REGULAR RHYTHM. absent: Rubs - GI/Abdominal Exam GI & Abdominal Exam: Soft, Normal Bowel Sounds - Extremities Exam Extremities Exam: absent: Calf Tenderness - Back Exam Back Exam: absent: CVA tenderness (L) - Neurological Exam Neurological Exam: Alert - Psychiatric Exam Psychiatric exam: Anxious Assessment and Plan (1) Chronic kidney disease, stage 5 Assessment & Plan: End stage renal disease started on dialysis tolerating well. Patient went for dialysis permacath Scheduled for hemodialysis tomorrow order was given Serum calcium improving can going up we will cut down calcitriol to 0.25 g daily. Repeat serum phosphorus level Secondary hyperparathyroidism with PTH of 755 patient receiving calcitriol part of the treatment Anemia hemoglobin remained stable around 9.0 continue EPO Status: Chronic
--- NOTE | 2017-01-05 11:37 | CP.PCM.PN ---
Subjective - Date & Time of Evaluation Date of Evaluation: 01/05/17 Time of Evaluation: 10:00 - Subjective Subjective: The pt is a 31yo female, PMHx of IDDM, stage 4 kidney failure, presents to the ED for evaluation of weakness and nausea present for the past couple weeks. Pt also reports she recently had bloodwork done and her results indicated her kidney function went fro 15 to 6, causing her concern and prompting her visit to the ED. no n/v/d/f at this time. pt s/p HD yesterday, will have permacath placed today Objective - Vital Signs/Intake and Output Vital Signs (last 24 hours): Temp Pulse Resp BP Pulse Ox 97.6 F 59 L 18 120/75 100 01/05/17 10:10 01/05/17 11:10 01/05/17 11:10 01/05/17 11:10 01/05/17 11:10 - Medications Medications: Current Medications Amlodipine Besylate (Norvasc) 5 mg PO DAILY [facility] Last Admin: 01/05/17 08:33 Dose: 5 mg Atorvastatin Calcium (Lipitor) 20 mg PO HS [facility] Last Admin: 01/04/17 22:11 Dose: 20 mg Calcitriol (Rocaltrol) 0.75 mcg PO DAILY [facility] Last Admin: 01/05/17 08:33 Dose: 0.75 mcg Calcium Acetate (Phoslo) 2,001 mg PO TID [facility] Last Admin: 01/05/17 08:33 Dose: Not Given Clonidine HCl (Catapres) 0.1 mg PO BID [facility] Last Admin: 01/05/17 08:33 Dose: 0.1 mg Epoetin Dash (Procrit) 10,000 unit IV MWF [facility] Last Admin: 01/04/17 16:32 Dose: 10,000 unit Home Med (Norethindrone-E.Estradiol-Iron [Loestrin Fe 1-20 Tablet]) 1 tab PO DAILY [facility] Sodium Chloride (Sodium Chloride 0.9%) 250 mls @ 50 mls/hr IV .Q5H [facility] Stop: 01/05/17 12:10 Insulin Human Regular (Humulin R) 0 units SC ACHS [facility] PRN Reason: Protocol Last Admin: 01/05/17 08:27 Dose: Not Given Lidocaine (Lidoderm) 1 ea TD DAILY [facility] Last Admin: 01/05/17 08:29 Dose: 1 ea Ondansetron HCl (Zofran Inj) 4 mg IVP Q6 PRN PRN Reason: Nausea/Vomiting Sodium Bicarbonate (Sodium Bicarbonate Tab) 1,300 mg PO BID [facility] Last Admin: 01/05/17 08:32 Dose: 1,300 mg - Labs Labs: 01/04/17 04:10 01/05/17 05:00 PT 11.2 Seconds (9.8-13.1) 01/03/17 12:45 INR 1.0 (0.9-1.2) 01/03/17 12:45 APTT 28.8 Seconds (25.6-37.1) 01/03/17 12:45 Assessment and Plan - Assessment and Plan (Free Text) Assessment: 1. ESRD permacath today possible dc tomorrow to [facility] f/u nephro recs HD tomorrow. monitor labs.
--- NOTE | 2017-01-05 15:14 | VASCULAR ---
PROCEDURE: Date of procedure: 01/05/2017 Procedure: 1. Conversion of right non tunneled IJ tunneled hemodialysis catheter to a tunneled HD catheter, CPT 65998 Medications: 9cc 1 percent lidocaine, patient also received IV sedation along with physiologic monitoring by the anesthesiologist, 1 erick Swenson HISTORY: End-stage renal disease, TECHNIQUE: Following informed consent and procedure time-out, the patient was placed supine on the interventional table. The existing right IJ non-tunneled hemodialysis catheter surrounding skin were prepped and draped in the usual sterile fashion. Spot fluoroscopic image showed a right IJ catheter in place. The existing catheter was then removed over a guidewire for a peel-away sheath. A 19 centimeter cuff to tip hemodialysis catheter was then tunneled under the skin and out the venotomy site. The catheter was then advanced through a peel-away sheath to. The catheter was tested and has adequate blood flow for dialysis. The catheter was flushed and locked with heparin per specified amount. The catheter secured to the skin with a 0 silk suture. IMPRESSION: Exchange of right IJ non tunneled hemodialysis catheter for a tunneled hemodialysis catheter via same venous access. The position of a new tunneled hemodialysis catheter is confirmed fluoroscopic image and is within the superior vena cava. The catheter is functional and ready for use.
[2017-01-05 19:13] VITALS: RESP 20
[2017-01-06] MEDS: Insulin Regular 100 units/ml SC SCH ×2 (07:12→11:53)
[2017-01-06] MEDS: Lidocaine 5% Patch TD SCH (08:32)
--- NOTE | 2017-01-06 08:46 | CP.PCM.PN ---
Subjective - Date & Time of Evaluation Date of Evaluation: 01/06/17 Time of Evaluation: 08:46 Objective - Vital Signs/Intake and Output Vital Signs (last 24 hours): Temp Pulse Resp BP Pulse Ox 98.8 F 73 20 137/85 99 01/06/17 08:01 01/06/17 08:01 01/06/17 08:01 01/06/17 08:01 01/06/17 08:01 - Medications Medications: Current Medications Acetaminophen (Tylenol 325mg Tab) 650 mg PO Q4 PRN PRN Reason: Pain, moderate (4-7) Last Admin: 01/05/17 12:10 Dose: 650 mg Amlodipine Besylate (Norvasc) 5 mg PO DAILY [facility] Last Admin: 01/05/17 08:33 Dose: 5 mg Atorvastatin Calcium (Lipitor) 20 mg PO HS [facility] Last Admin: 01/05/17 21:20 Dose: 20 mg Calcitriol (Rocaltrol) 0.75 mcg PO DAILY [facility] Last Admin: 01/06/17 08:34 Dose: 0.75 mcg Calcium Acetate (Phoslo) 2,001 mg PO TID [facility] Last Admin: 01/06/17 08:31 Dose: 2,001 mg Clonidine HCl (Catapres) 0.1 mg PO BID [facility] Last Admin: 01/05/17 16:38 Dose: 0.1 mg Epoetin Dash (Procrit) 10,000 unit IV MWF [facility] Last Admin: 01/04/17 16:32 Dose: 10,000 unit Home Med (Norethindrone-E.Estradiol-Iron [Loestrin Fe 1-20 Tablet]) 1 tab PO DAILY [facility] Insulin Human Regular (Humulin R) 0 units SC ACHS [facility] PRN Reason: Protocol Last Admin: 01/06/17 07:12 Dose: Not Given Lidocaine (Lidoderm) 1 ea TD DAILY [facility] Last Admin: 01/06/17 08:32 Dose: 1 ea Ondansetron HCl (Zofran Inj) 4 mg IVP Q6 PRN PRN Reason: Nausea/Vomiting Last Admin: 01/06/17 08:23 Dose: 4 mg Sodium Bicarbonate (Sodium Bicarbonate Tab) 1,300 mg PO BID [facility] Last Admin: 01/06/17 08:32 Dose: 1,300 mg - Labs Labs: 01/04/17 04:10 01/05/17 05:00 PT 11.2 Seconds (9.8-13.1) 01/03/17 12:45 INR 1.0 (0.9-1.2) 01/03/17 12:45 APTT 28.8 Seconds (25.6-37.1) 01/03/17 12:45
[2017-01-06] MEDS: EPOETIN ALFA 10,000 UNIT/ML ML IV SCH (10:03)
--- NOTE | 2017-01-06 12:12 | CP.PCM.PN ---
Subjective - Date & Time of Evaluation Date of Evaluation: 01/06/17 Time of Evaluation: 12:10 - Subjective Subjective: She was seen on hemodialysis earlier Vital signs stable Patient awake but somewhat depressed perhaps because she is going for kidney transplant next week Blood pressure is stable Hemodialysis running well with ultrafiltration to be done 1000 mL on day because she is not eating she did not take her breakfast and she was complaining of some nausea Chest clear Heart no rubs Abdomen soft Extremity no edema The impression and plan End stage renal disease requiring dialysis she scheduled as outpatient for Monday and Monday to have dialysis and Monday for kidney transplant in [facility] post permacath in the right subclavian area Follow-up as outpatient Objective - Vital Signs/Intake and Output Vital Signs (last 24 hours): Temp Pulse Resp BP Pulse Ox 98.8 F 69 20 142/80 99 01/06/17 08:01 01/06/17 11:48 01/06/17 08:01 01/06/17 11:48 01/06/17 08:01 - Medications Medications: Current Medications Acetaminophen (Tylenol 325mg Tab) 650 mg PO Q4 PRN PRN Reason: Pain, moderate (4-7) Last Admin: 01/05/17 12:10 Dose: 650 mg Amlodipine Besylate (Norvasc) 5 mg PO DAILY [facility] Last Admin: 01/06/17 11:48 Dose: 5 mg Atorvastatin Calcium (Lipitor) 20 mg PO HS [facility] Last Admin: 01/05/17 21:20 Dose: 20 mg Calcitriol (Rocaltrol) 0.75 mcg PO DAILY [facility] Last Admin: 01/06/17 08:34 Dose: 0.75 mcg Calcium Acetate (Phoslo) 2,001 mg PO TID [facility] Last Admin: 01/06/17 08:31 Dose: 2,001 mg Clonidine HCl (Catapres) 0.1 mg PO BID [facility] Last Admin: 01/06/17 11:46 Dose: 0.1 mg Epoetin Dash (Procrit) 10,000 unit IV MWF [facility] Last Admin: 01/06/17 10:03 Dose: 10,000 unit Home Med (Norethindrone-E.Estradiol-Iron [Loestrin Fe 1-20 Tablet]) 1 tab PO DAILY [facility] Insulin Human Regular (Humulin R) 0 units SC ACHS [facility] PRN Reason: Protocol Last Admin: 01/06/17 11:53 Dose: Not Given Lidocaine (Lidoderm) 1 ea TD DAILY [facility] Last Admin: 01/06/17 08:32 Dose: 1 ea Ondansetron HCl (Zofran Inj) 4 mg IVP Q6 PRN PRN Reason: Nausea/Vomiting Last Admin: 01/06/17 08:23 Dose: 4 mg Sodium Bicarbonate (Sodium Bicarbonate Tab) 1,300 mg PO BID [facility] Last Admin: 01/06/17 08:32 Dose: 1,300 mg - Labs Labs: 01/04/17 04:10 01/05/17 05:00 PT 11.2 Seconds (9.8-13.1) 01/03/17 12:45 INR 1.0 (0.9-1.2) 01/03/17 12:45 APTT 28.8 Seconds (25.6-37.1) 01/03/17 12:45 Assessment and Plan (1) Chronic kidney disease, stage 5 Status: Chronic
[2017-01-06 12:28] VITALS: BP 132/88; PULSE 77; TEMP 97.6; O2SAT 100
--- NOTE | 2017-01-06 21:24 | CP.PCM.DIS ---
Provider - Provider Date of Admission: 01/02/17 15:11 Attending physician: Nba Pappas MD Time Spent in preparation of Discharge (in minutes): 15 Hospital Course - Lab Results Lab Results: Most Recent Lab Values WBC 7.0 K/uL (4.8-10.8) 01/04/17 04:10 RBC 3.25 Mil/uL (3.80-5.20) L 01/04/17 04:10 Hgb 9.0 g/dL (12.0-16.0) L 01/04/17 04:10 Hct 26.9 % (34.0-47.0) L 01/04/17 04:10 MCV 82.8 fl (81.0-99.0) 01/04/17 04:10 MCH 27.8 pg (27.0-31.0) 01/04/17 04:10 MCHC 33.5 g/dL (33.0-37.0) 01/04/17 04:10 RDW 13.1 % (11.5-14.5) 01/04/17 04:10 Plt Count 135 K/uL (130-400) 01/04/17 04:10 MPV 7.4 fl (7.2-11.7) 01/03/17 07:30 Neut % (Auto) 57.7 % (50.0-75.0) 01/03/17 07:30 Lymph % (Auto) 31.3 % (20.0-40.0) 01/03/17 07:30 [place] % (Auto) 7.2 % (0.0-10.0) 01/03/17 07:30 Eos % (Auto) 3.0 % (0.0-4.0) 01/03/17 07:30 Baso % (Auto) 0.8 % (0.0-2.0) 01/03/17 07:30 Neut # 3.3 K/uL (1.8-7.0) 01/03/17 07:30 Lymph # 1.8 K/uL (1.0-4.3) 01/03/17 07:30 [place] # 0.4 K/uL (0.0-0.8) 01/03/17 07:30 Eos # 0.2 K/uL (0.0-0.7) 01/03/17 07:30 Baso # 0.0 K/uL (0.0-0.2) 01/03/17 07:30 PT 11.2 Seconds (9.8-13.1) 01/03/17 12:45 INR 1.0 (0.9-1.2) 01/03/17 12:45 APTT 28.8 Seconds (25.6-37.1) 01/03/17 12:45 Sodium 137 mmol/l (132-148) 01/05/17 05:00 Potassium 4.2 MMOL/L (3.6-5.0) 01/05/17 05:00 Chloride 100 mmol/L (98-107) 01/05/17 05:00 Carbon Dioxide 28 mmol/L (22-30) 01/05/17 05:00 Anion Gap 13 (10-20) 01/05/17 05:00 BUN 40 mg/dl (7-17) H 01/05/17 05:00 Creatinine 5.7 mg/dL (0.7-1.2) H 01/05/17 05:00 Est GFR ( Amer) 11 01/05/17 05:00 Est GFR (Non-Af Amer) 9 01/05/17 05:00 POC Glucose (mg/dL) 73 mg/dL (65-110) 01/06/17 11:52 Random Glucose 186 mg/dL (65-105) H 01/05/17 05:00 Calcium 8.5 mg/dL (8.4-10.2) 01/05/17 05:00 Phosphorus 7.8 mg/dl (2.5-4.5) H 01/02/17 10:05 Magnesium 1.9 MG/DL (1.6-2.3) 01/01/17 15:57 Iron 119 ug/dL (37-170) 01/02/17 10:05 TIBC 252 ug/dL (250-450) 01/02/17 10:05 % Saturation 47 % (20-55) 01/02/17 10:05 Ferritin 98.2 ng/mL 01/02/17 10:05 Total Bilirubin 0.5 mg/dl (0.2-1.3) 01/03/17 07:30 AST 31 U/L (14-36) 01/03/17 07:30 ALT 36 U/L (9-52) 01/03/17 07:30 Alkaline Phosphatase 61 U/L (38-126) 01/03/17 07:30 Total Protein 5.8 G/DL (6.3-8.2) L 01/03/17 07:30 Albumin 3.2 g/dL (3.5-5.0) L 01/03/17 07:30 Globulin 2.6 gm/dL (2.2-3.9) 01/03/17 07:30 Albumin/Globulin Ratio 1.2 (1.0-2.1) 01/03/17 07:30 PTH Intact Whole [place] 755 pg/mL (14-64) H 01/02/17 11:05 Urine Color Straw (YELLOW) 01/01/17 15:57 Urine Clarity Clear (Clear) 01/01/17 15:57 Urine pH 7.0 (5.0-8.0) 01/01/17 15:57 Ur Specific [place] 1.011 (1.003-1.030) 01/01/17 15:57 Urine Protein >=500 mg/dL (NEGATIVE) 01/01/17 15:57 Urine Glucose (UA) >=500 mg/dL (Normal) 01/01/17 15:57 Urine Ketones Negative mg/dL (NEGATIVE) 01/01/17 15:57 Urine Blood Negative (NEGATIVE) 01/01/17 15:57 Urine Nitrate Negative (NEGATIVE) 01/01/17 15:57 Urine Bilirubin Negative (NEGATIVE) 01/01/17 15:57 Urine Urobilinogen 0.2-1.0 mg/dL (0.2-1.0) 01/01/17 15:57 Ur Leukocyte Esterase Neg [place]/uL (Negative) 01/01/17 15:57 Urine RBC (Auto) 2 /hpf (0-3) 01/01/17 15:57 Urine Microscopic WBC 1 /hpf (0-5) 01/01/17 15:57 Ur Squamous Epith Cells 1 /hpf (0-5) 01/01/17 15:57 Urine Bacteria Rare (<OCC) 01/01/17 15:57 Ur Random Creatinine 24.4 mg/dL 01/02/17 17:30 U Random Total Protein 463.0 mg/dL (0.0-12.0) H 01/02/17 17:30 Hepatitis A IgM Ab Negative (NEGATIVE) 01/03/17 18:18 Hep Bs Antigen Negative (NEGATIVE) 01/03/17 18:18 Hep Bs Antibody Indeterminate (NEGATIVE) 01/04/17 13:00 Hep B Core IgM Ab Negative (NEGATIVE) 01/03/17 18:18 Hepatitis C Antibody Negative (NEGATIVE) 01/03/17 18:18 Discharge Exam - Head Exam Head Exam: ATRAUMATIC, NORMAL INSPECTION - Eye Exam Eye Exam: EOMI, Normal appearance, PERRL Pupil Exam: NORMAL ACCOMODATION, PERRL - Respiratory Exam Respiratory Exam: Clear to PA & Lateral, NORMAL BREATHING PATTERN, UNREMARKABLE - Cardiovascular Exam Cardiovascular Exam: REGULAR RHYTHM, RRR, +S1, +S2 - GI/Abdominal Exam GI & Abdominal Exam: Normal Bowel Sounds, Soft, Unremarkable - Extremities Exam Extremities exam: full ROM, normal capillary refill, normal inspection, pedal pulses present - Back Exam Back exam: FULL ROM, NORMAL INSPECTION - Neurological Exam Neurological exam: Alert, CN II-XII Intact, Normal Gait, Oriented x3, Reflexes Normal - Psychiatric Exam Psychiatric exam: Normal Affect, Normal Mood - Skin Skin Exam: Dry, Intact, Normal Color, Warm Discharge Plan - Discharge Medications Prescriptions: amLODIPine [Norvasc] 5 mg PO DAILY #30 tab Calcium Acetate [Phoslo] 2,001 mg PO TID #80 tab cloNIDine [Catapres] 0.1 mg PO BID #60 tab - Follow Up Plan Condition: FAIR Disposition: HOME/ ROUTINE Instructions: Chronic Kidney Disease (DC) Additional Instructions: patient cleared for discharge to home today by Dialysis set up by [facility] for Mon, Monday at [place] [facility] current meds ( see reconciliation) pt . will f/u with [facility] on Monday for labs renal transplant scheduled for next Monday at [place] final dx-iddm, esrd, new dialysis, f/u pmd, nephro, kidney transplant center rted prn, meds pe rmed rec pt in no distress. offers no complaitns/except fatigue, for dc after dialysis
== END 2017-01-06 15:02 | disposition home or self-care (01) | DRG 683 ==
LOC: H.ER 14:52 → H.ERHOLD 17:35 → H.MEDSURG1 20:38 → OBSVTOIN 01-02 15:11 → H.TEL 01-03 15:13
PROVIDERS: ADMIT Family Medicine; ATTEND Family Medicine
PROC: 05HM33Z Insertion of Infusion Device into Right Internal Jugular Vein, Percutaneous Approach (ICD-10-PCS; principal; 2017-01-03)
PROC: B513ZZA Fluoroscopy of Right Jugular Veins, Guidance (ICD-10-PCS; 2017-01-03)
PROC: 5A1D60Z (ICD-10-PCS; 2017-01-03)
PROC: 02PY33Z Removal of Infusion Device from Great Vessel, Percutaneous Approach (ICD-10-PCS; 2017-01-05)
PROC: 02HV33Z Insertion of Infusion Device into Superior Vena Cava, Percutaneous Approach (ICD-10-PCS; 2017-01-05)
PROC: B518ZZA Fluoroscopy of Superior Vena Cava, Guidance (ICD-10-PCS; 2017-01-05)
DX: N17.9 Acute kidney failure, unspecified (principal); I12.0 Hypertensive chronic kidney disease with stage 5 chronic kidney disease or end stage renal disease; E87.3 Alkalosis; E10.21 Type 1 diabetes mellitus with diabetic nephropathy; N18.6 End stage renal disease; N25.81 Secondary hyperparathyroidism of renal origin; E10.22 Type 1 diabetes mellitus with diabetic chronic kidney disease; E10.649 Type 1 diabetes mellitus with hypoglycemia without coma; D64.9 Anemia, unspecified; E83.39 Other disorders of phosphorus metabolism; F41.9 Anxiety disorder, unspecified; Z99.2 Dependence on renal dialysis; Z88.2 Allergy status to sulfonamides; Z79.4 Long term (current) use of insulin; Z87.442 Personal history of urinary calculi; Z90.49 Acquired absence of other specified parts of digestive tract